=== PATIENT | male | born 1960 | race African-American/Black ===

== ENCOUNTER 2023-08-15 10:09 | Emergency (ER) | payer BC, MEDICAID ==
[~2023-08-15] VITALS: Ht 180.3 cm; Wt 111.0 kg
[~2023-08-15 10:09] MED LIST: ASPI-1406 PO; BACL-141 PO; DOCU-150 PO; ENAL-75 PO; GLIP10TA10 PO; METF-416 PO; PIOG15TA66 PO
[2023-08-15 10:20] VITALS: BP 166/88; PULSE 74; RESP 20; O2SAT 98
[2023-08-15] MEDS ORDERED: KETOROLAC 15MG/ML VIAL IV ONE (11:00)
[2023-08-15] MEDS ORDERED: DIPHENHYDRAMINE 50MG/ML VIAL IV ONE (11:00)
[2023-08-15] MEDS: TETANUS, DIPHTHERIA, PERTUSSIS VAC/PF 0.5ML (>10YR OLD) IM ONE (11:20)
[2023-08-15] MEDS: BACITRACIN ZINC OINT UDPKT TOP ONE (11:21)
[2023-08-15] MEDS: ONDANSETRON HCL 4MG/2ML INJ IV ONE (11:21)
[2023-08-15] MEDS: LIDOCAINE HCL/PF 1% 10 MG/ML 5ML VIAL INFIL ONE (11:21)
[2023-08-15 11:37] VITALS: TEMP 98.2
[2023-08-15] MEDS: ACETAMINOPHEN 325MG TABLET PO ONE (11:37)
[2023-08-15] MEDS: DIPHENHYDRAMINE 25MG CAPSULE PO ONE (11:37)
[2023-08-15] MEDS: METOCLOPRAMIDE HCL 10MG TABLET PO ONE (11:37)
[2023-08-15] MEDS ORDERED: CEPH500T MT (14:07)
[2023-08-15] MEDS ORDERED: SULF1TAB48 MT (14:07)
== END 2023-08-15 14:38 | disposition home or self-care (01) ==
LOC: ER 10:28
DX: G43.909 Migraine, unspecified, not intractable, without status migrainosus (principal); L02.811 Cutaneous abscess of head [any part, except face]; J45.909 Unspecified asthma, uncomplicated; E11.9 Type 2 diabetes mellitus without complications; I10 Essential (primary) hypertension
CPT/HCPCS: 70450; 90715; 10060; 90471; 99285; Q0163; J8597; J3490; Z7610; J1200; J2405